=== PATIENT | male | born 1985 | race Caucasian/White ===

== ENCOUNTER 2022-10-28 15:55 | Emergency (ER) | payer OTHER ==
[~2022-10-28] VITALS: Ht 182.9 cm; Wt 82.6 kg
[2022-10-28 15:55] VITALS: BP 172/83
--- NOTE | 2022-10-28 15:55 | NUR ---
BIBS C/O BACK PAIN SINCE FRIDAY WENT TO URGENT CARE AND PAIN IS WENT DOWN TO 5/10 BUT IS FEELING NUMBNESS ON HIS L LEG
--- NOTE | 2022-10-28 17:13 | NUR ---
MRI QUESTIONNAIRE COMPLETED AND SIGNED BY PT; PLACED IN CHART.
--- NOTE | 2022-10-28 17:14 | NUR ---
30-40MINS FOR MRI PER OSIEL, GUIDANCE COUNSELOR
[2022-10-28] MEDS ORDERED: CYCL5TAB PO (20:13)
[2022-10-28] MEDS ORDERED: NAPR-1192 PO (20:13)
== END 2022-10-28 20:23 | disposition home or self-care (01) ==
LOC: ER 16:03
DX: M54.16 Radiculopathy, lumbar region (principal); R20.0 Anesthesia of skin; Z79.899 Other long term (current) drug therapy
CPT/HCPCS: 72131-TC; 72148-TC

== ENCOUNTER 2023-07-09 12:54 | Emergency (ER) | payer OTHER ==
[~2023-07-09] VITALS: Ht 182.9 cm; Wt 83.9 kg
[~2023-07-09 12:54] MED LIST: CYCL5TAB PO; NAPR-1192 PO
[2023-07-09] MEDS ORDERED: METH-647 PO (15:34)
[2023-07-09] MEDS ORDERED: IBUP-1953 PO (15:34)
[2023-07-09 15:45] VITALS: BP 132/78; TEMP 98.4; O2SAT 99
== END 2023-07-09 15:45 | disposition home or self-care (01) ==
LOC: ER 13:12
DX: S13.4XXA Sprain of ligaments of cervical spine, initial encounter (principal); W18.09XA Striking against other object with subsequent fall, initial encounter; Y93.I1 Activity, roller coaster riding; Y92.89 Other specified places as the place of occurrence of the external cause; Y99.8 Other external cause status
CPT/HCPCS: 70450-TC; 72125-TC

== ENCOUNTER 2024-01-01 15:56 | Emergency (ER) | payer OTHER ==
[~2024-01-01] VITALS: Ht 182.9 cm; Wt 83.9 kg
[~2024-01-01 15:56] MED LIST changes: +IBUP-1953 PO; +METH-647 PO
[2024-01-01 16:20] VITALS: TEMP 98.6
[2024-01-01 17:13] LABS: BASOPHILS % (AUTO) 0.4 % (0.0-2.0); EOSINOPHILS # (AUTO) 0.1 K/uL (0.0-0.7); HEMATOCRIT 46 % (39-51); HEMOGLOBIN 15.7 g/dL (13.5-17.5); LYMPHOCYTES # (AUTO) 1.2 K/uL (0.8-4.8); LYMPHOCYTES % (AUTO) 23.3 % (20.0-44.0); MEAN CORPUSCULAR HEMOGLOBIN 29 PG (26.0-33.0); MEAN CORPUSCULAR HGB CONC 34 g/dl (31.0-36.0); MEAN CORPUSCULAR VOLUME 84 fL (80-96); MONOCYTES # (AUTO) 0.3 K/uL (0.1-1.30); MONOCYTES % (AUTO) 6.1 % (2.0-12.0); NEUTROPHILS # (AUTO) 3.6 K/uL (1.8-8.9); NEUTROPHILS % (AUTO) 69.2 % (43.0-81.0); PLATELET COUNT (AUTO) 186 K/uL (150-450); RED BLOOD CELL COUNT(AUTO) 5.43 MIL/uL (4.5-6.0); RED CELL DISTRIBUTION WIDTH 13.3 % (11.5-15.0); WHITE BLOOD COUNT (AUTO) 5.2 K/uL (4.3-11.0)
[2024-01-01 17:26] LABS: ALANINE AMINOTRANSFERASE 34 U/L (12-78); ALBUMIN 4.4 g/dL (3.4-5.0); ALKALINE PHOSPHATASE 53 U/L (46-116); ASPARTATE AMINOTRANSFERASE 23 U/L (15-37); BILIRUBIN,DIRECT 0.3 mg/dL (0.0-0.2); BILIRUBIN,TOTAL 2.6 mg/dL (0.2-1.0); CALCIUM, SERUM 9.2 mg/dL (8.5-10.1); CARBON DIOXIDE 26 mmol/L (21-32); CHLORIDE 105 mmol/L (98-107); GLUCOSE 103 mg/dL (74-106); POTASSIUM 3.7 mmol/L (3.5-5.1); SODIUM SERUM 138 mmol/L (136-145); TOTAL PROTEIN, SERUM 7.9 g/dL (6.4-8.2); UREA NITROGEN, BLOOD 21 mg/dL (7-18)
[2024-01-01 18:09] VITALS: BP 140/85; O2SAT 99
== END 2024-01-01 18:05 | disposition home or self-care (01) ==
LOC: ER 16:09
DX: R06.02 Shortness of breath (principal); F41.9 Anxiety disorder, unspecified
CPT/HCPCS: 36415; 71045-TC; 80048-TC; 80076-TC; 84484-TC; 85025-TC; 85378-TC

== ENCOUNTER 2025-02-06 03:18 | Emergency (ER) | payer OTHER ==
[~2025-02-06] VITALS: Ht 182.9 cm; Wt 75.7 kg
[2025-02-06 04:34] VITALS: BP 133/81; TEMP 99; O2SAT 96
== END 2025-02-06 04:43 | disposition home or self-care (01) ==
LOC: ER 03:25
DX: R10.84 Generalized abdominal pain (principal); Z79.899 Other long term (current) drug therapy